=== PATIENT | male | born 1955 | race Caucasian/White ===

== ENCOUNTER 2020-01-26 06:54 | Day surgery (SDC) | payer MEDICAID, OTHER ==
[~2020-01-26 06:54] MED LIST: Lactated Ringers 1,000 ML IV SCH; Lidocaine 1%/Sod Bicarbonate in NS 8.4% 1 ML Syringe IDERM PRN; Sodium Chloride 0.9% 10 ML Syringe FLUSH PRN
--- NOTE | 2020-01-26 07:14 | PCM.PREANE ---
Preanesthetic Assessment - Procedure Proposed Procedure: colonoscopy - Anesthesia/Transfusion/Family Hx Anesthesia History: Prior Anesthesia Without Reaction Family History of Anesthesia Reaction: No Transfusion History: No Prior Transfusion(s) - Review of Systems General: No Symptoms Pulmonary: No Symptoms Cardiovascular: No Symptoms Gastrointestinal: No Symptoms Neurological: No Symptoms Other: Reports: None - Physical Assessment NPO Status Date: 01/25/20 NPO Status Time: 00:00 Height: 1.85 m Weight: 144.5 kg ASA Class: 3 Mental Status: Alert & Oriented x3 Airway Class: Mallampati = 3 Dentition: Reports: [place](s) Thyro-Mental Finger Breadths: 2 Mouth Opening Finger Breadths: 2 ROM/Head Extension: Full Lungs: Clear to Auscultation, Normal Respiratory Effort Cardiovascular: Regular Rate, Regular Rhythm - Allergies Allergies/Adverse Reactions: Allergies Allergy/AdvReac Type Severity Reaction Status Date / Time Iodine and Iodide Containing Allergy Anaphylactic Verified 01/25/20 10:48 Produc Shock shellfish derived Allergy Anaphylactic Verified 01/25/20 10:48 Shock - Blood Blood Available: No Product(s) Available: None - Anesthesia Plan Pre-Op Medication Ordered: None - Acknowledgements Anesthesia Type Planned: MAC Pt an Appropriate Candidate for the Planned Anesthesia: Yes Alternatives and Risks of Anesthesia Discussed w Pt/Guardian: Yes Pt/Guardian Understands and Agrees with Anesthesia Plan: Yes PreAnesthesia Questionnaire HEENT History: Reports: Impaired Vision, Other (See Below) Other HEENT History: wears glasses Cardiovascular History: Reports: None Respiratory History: Reports: Sleep Apnea, SOB Gastrointestinal History: Reports: Colon Polyp, Diverticulosis, Hepatitis Genitourinary History: Reports: None BOILER TENDER History: Reports: None Musculoskeletal History: Reports: Arthritis, RA, Other (See Below) Other Musculoskeletal History: right foot plantar fasciitis Neurological History: Reports: None Psychiatric History: Reports: None Endocrine/Metabolic History: Reports: Obesity/BMI 30+ Hematologic History: Reports: None Immunologic History: Reports: None Oncologic (Cancer) History: Reports: None Dermatologic History: Reports: None - Past Surgical History Head Surgeries/Procedures: Reports: None HEENT Surgical History: Reports: None Cardiovascular Surgical History: Reports: None Respiratory Surgical History: Reports: None GI Surgical History: Reports: Cholecystectomy, Colonoscopy, Hernia Repair/Other Male Surgical History: Reports: Circumcision Endocrine Surgical History: Reports: None Neurological Surgical History: Reports: None Musculoskeletal Surgical History: Reports: None Oncologic Surgical History: Reports: None Dermatological Surgical History: Reports: None - SUBSTANCE USE Tobacco Use Status *Q: Current Some Day Tobacco User Tobacco Use Within Last Twelve Months: Cigarettes Second Hand Smoke Exposure: No Days Per Week of Alcohol Use: 1 Number of Drinks Per Day: 1 Total Drinks Per Week: 1 Recreational Drug Use History: No - HOME MEDS Home Medications: Home Meds Adalimumab [Humira(Cf) Pen] 0.4 ml SQ Q14D 01/25/20 [History] Alendronate Sodium [Fosamax] 70 mg PO DAILY 01/25/20 [History] Furosemide [Lasix] 20 - 40 mg PO Q48H PRN 01/25/20 [History] Hydroxychloroquine Sulfate [Plaquenil] 200 mg PO BID 01/25/20 [History] Meloxicam 15 mg PO DAILY 01/25/20 [History] Methotrexate 20 mg PO Q7D 01/25/20 [History] predniSONE [Prednisone] 10 mg PO Q48H 01/25/20 [History] - CURRENT (IN HOUSE) MEDS Current Meds: Current Medications Lactated Ringer's (Ringers, Lactated) 1,000 mls @ 125 mls/hr IV ASDIRECTED MIKAELA Stop: 01/26/20 23:00 Lidocaine/Sodium Bicarbonate (Buffered Lidocaine 1% In Ns 8.4%) 0.25 ml IDERM ONETIME PRN PRN Reason: Prior to IV Start Stop: 01/26/20 18:00 Sodium Chloride (Saline Flush) 10 ml FLUSH ASDIRECTED PRN PRN Reason: Keep Vein Open Stop: 01/26/20 18:00 Discontinued Medications Lactated Ringer's (Ringers, Lactated) 1,000 mls @ 125 mls/hr IV ASDIRECTED MIKAELA Stop: 01/19/20 23:00 Lidocaine/Sodium Bicarbonate (Buffered Lidocaine 1% In Ns 8.4%) 0.25 ml IDERM ONETIME PRN PRN Reason: Prior to IV Start Stop: 01/19/20 18:00 Sodium Chloride (Saline Flush) 10 ml FLUSH ASDIRECTED PRN PRN Reason: Keep Vein Open Stop: 01/19/20 18:00
[2020-01-26] MEDS ORDERED: fentaNYL 100 MCG/2 ML SDV ONE (07:23)
[2020-01-26] MEDS ORDERED: Propofol 200 MG/20 ML SDV ONE ×2 (07:23→07:26)
[2020-01-26] MEDS ORDERED: Midazolam 1 MG/ML 2 ML SDV ONE (07:23)
[2020-01-26] MEDS ORDERED: Lidocaine 1% 4 ML ONE (07:23)
--- NOTE | 2020-01-26 08:24 | PCM.OPNOTE ---
- General Post-Op/Procedure Note Date of Surgery/Procedure: 01/26/20 Operative Procedure(s): Colonoscopy with snare polypectomy Findings: 6 mm descending colon polyp, sigmoid diverticulosis Pre Op Diagnosis: personal history of adenomatous colon polyps Post-Op Diagnosis: 6 mm descending colon polyp, sigmoid diverticulosis Anesthesia Technique: MAC Primary Surgeon: Dami Shell Anesthesia Provider: Robin Ferrer EBL in mLs: 5 Complications: None Condition: Good Free Text/Narrative:: After the patient gave verbal and written consent he was placed on blood pressure and pulse ox monitoring. he was given iv sedation which he tolerated well. The olympus colonoscope was inserted per rectum and advanced to the cecum without difficulty. The ileocecal valve and appendiceal orfice were imaged documenting cecal intubation. The scope was slowly withdrawn. The views were good, the prep was good. The mucosal surfaces were carefully examined. A 6 mm descending colon polyp was noted and removed with cold snare polypectomy. There was hemostasis. The scope was then brought down to the rectum and retroflexed. The scope was then straightened and removed. There were no complications. The patient left the endoscopy suite in good condition. There were no complications.
--- NOTE | 2020-01-26 08:30 | PCM48HPAN ---
Post Anesthesia Note - EVALUATION WITHIN 48HRS OF ANESTHETIC Vital Signs in Normal Range: Yes Patient Participated in Evaluation: Yes Respiratory Function Stable: Yes Airway Patent: Yes Cardiovascular Function Stable: Yes Hydration Status Stable: Yes Pain Control Satisfactory: Yes Nausea and Vomiting Control Satisfactory: Yes Mental Status Recovered: Yes
[2020-01-26 09:50] VITALS: BP 113/76; PULSE 67
== END 2020-01-26 09:01 | disposition home or self-care (01) ==
LOC: JD.SDS 06:54
PROVIDERS: ATTEND Family Medicine
DX: Z12.11 Encounter for screening for malignant neoplasm of colon (principal); D12.4 Benign neoplasm of descending colon; K57.30 Diverticulosis of large intestine without perforation or abscess without bleeding; M72.2 Plantar fascial fibromatosis; G47.33 Obstructive sleep apnea (adult) (pediatric); Z79.899 Other long term (current) drug therapy; Z91.041 Radiographic dye allergy status; Z90.49 Acquired absence of other specified parts of digestive tract; Z98.890 Other specified postprocedural states; Z87.891 Personal history of nicotine dependence; Z91.013 Allergy to seafood; E66.9 Obesity, unspecified; Z68.41 Body mass index [BMI] 40.0-44.9, adult; Z86.010 Personal history of colon polyps
CPT/HCPCS: 45385; J2001; J2250; J2704; J3010; J7120; 00811

== ENCOUNTER 2022-08-15 22:14 | Emergency (ER) | payer MEDICARE, OTHER ==
[2022-08-15] MEDS ORDERED: Sodium Chloride 0.9% 10 ML Syringe FLUSH PRN (22:23)
[2022-08-15 22:34] LABS: BASOPHILS ABSOLUTE AUTO 0.04 K/mm3 (0.01-0.08); BASOPHILS PERCENT AUTO 0.4 % (0.1-1.2); EOSINOPHILS ABSOLUTE AUTO 0.18 K/mm3 (0.04-0.54); EOSINOPHILS PERCENT AUTO 1.9 (0.8-7.0); HEMATOCRIT 41.7 % (40.1-51.0); HEMOGLOBIN 13.7 gm/dl (13.7-17.5); IMMATURE GRAN ABSOLUTE AUTO 0.03 K/mm3 (0.00-0.10); IMMATURE GRAN PERCENT AUTO 0.3 % (<=1.0); LYMPHOCYTES ABSOLUTE AUTO 1.75 K/mm3 (1.32-3.57); LYMPHOCYTES PERCENT AUTO 18.4 % (21.8-53.1); MEAN CORPUSCULAR HEMOGLOBIN 32.6 pg (25.7-32.2); MEAN CORPUSCULAR HGB CONC 32.9 g/dl (32.2-35.5); MEAN CORPUSCULAR VOLUME 99.3 fl (79.0-92.2); MEAN PLATELET VOLUME 9.1 fl (9.4-12.3); MONOCYTES ABSOLUTE AUTO 0.91 K/mm3 (0.30-0.82); MONOCYTES PERCENT AUTO 9.5 % (5.3-12.2); NEUTROPHILS ABSOLUTE AUTO 6.62 K/mm3 (1.78-5.38); NEUTROPHILS PERCENT AUTO 69.5 % (34.0-67.9); PLATELET COUNT,PLT 241 K/mm3 (163-337); WHITE BLOOD CELL COUNT,WBC 9.53 K/mm3 (4.23-9.07)
[2022-08-15 22:59] LABS: INR 1.04; PROTHROMBIN TIME 11.1 SECONDS (9.7-12.0)
[2022-08-15 23:00] LABS: PTT,PARTIAL THROMBOPLSTIN TIME 28.4 SECONDS (21.7-31.4)
[2022-08-15 23:02] LABS: A/G RATIO 0.9 (1-2); ALBUMIN 3.9 g/dl (3.4-5.0); ANION GAP 12.4 (5-15); BILIRUBIN TOTAL 0.4 mg/dL (0.2-1.0); BUN/CREATININE RATIO 24.2 (14-18); CALCIUM 9.6 mg/dL (8.5-10.1); CREATININE 1.2 mg/dL (0.7-1.3); EST CRCL DRUG DOSING (CG) 67.36 mL/min; POTASSIUM,K 4.4 mEq/L (3.5-5.1); PROTEIN TOTAL,TP 8.2 g/dl (6.4-8.2)
[2022-08-15] MEDS ORDERED: methylPREDNISolone Sodium Succinate 125 MG/2 ML SDV IVPUSH ONE (23:11)
[2022-08-15] MEDS ORDERED: diphenhydrAMINE 50 MG/ML SDV IVPUSH ONE (23:12)
[2022-08-15] MEDS ORDERED: Famotidine 20 MG/2 ML SDV IVPUSH ONE (23:12)
[2022-08-15] MEDS ORDERED: Sodium Chloride 0.9% 250 ML ONE (23:23)
[2022-08-15] MEDS ORDERED: Sodium Chloride 0.9% 100 ML IV SCH (23:45)
[2022-08-15] MEDS ORDERED: Morphine 2 MG/ML SYRINGE IVPUSH ONE (23:47)
[2022-08-15] MEDS ORDERED: Iopamidol 755 MG/ML 50 ML Bottle IVPUSH ONE (23:49)
[2022-08-15] MEDS ORDERED: Iopamidol 755 Mg/ML 100 ML Bottle IVPUSH ONE (23:49)
[2022-08-16] MEDS ORDERED: Apixaban 5 MG Tab PO ONE (01:25)
[2022-08-16 02:35] VITALS: BP 134/84; PULSE 84
== END 2022-08-16 02:39 | disposition home or self-care (01) ==
LOC: JD.ED 22:14
DX: I26.99 Other pulmonary embolism without acute cor pulmonale (principal); E66.9 Obesity, unspecified; Z91.041 Radiographic dye allergy status; Z91.013 Allergy to seafood; Z79.01 Long term (current) use of anticoagulants; Z68.41 Body mass index [BMI] 40.0-44.9, adult
CPT/HCPCS: 36415; 71045; 71275; 74177; 80053; 84484; 85025; 85379; 85610; 85730; 93005; 96374; 96375; 99285; A9270; J1200; J2270; J2930; J3490; Q9967